=== PATIENT | male | born 1985 | race Two or more races ===

== ENCOUNTER 2021-07-06 11:43 | Emergency (ER) | payer OTHER ==
[2021-07-06 12:20] VITALS: TEMP 98.1; BMI 23.8
[2021-07-06 14:59] LABS: BASO % 0.7 % (0-2.0); EOS % 0.6 % (0-4.5); HEMATOCRIT 48.2 % (35.4-49); HEMOGLOBIN 16.5 GM/dL (11.7-16.9); LYMPH % 30.4 % (8-40); MCH 33.9 pg (25.7-33.7); MCHC 34.2 g/dl (32.0-35.9); MEAN CELL VOLUME 99.1 fl (80-96); MEAN PLT VOLUME 8.8 fl (7.5-11.1); MONO % 8.9 % (3.8-10.2); NEUT % 59.4 % (42.8-82.8); PLATELET COUNT 243 10^3/uL (134-434); RBC 4.86 M/mm3 (4.00-5.60); WHITE BLOOD COUNT 8.2 K/mm3 (4.0-10.0)
[2021-07-06 15:18] LABS: CALCIUM 9.5 mg/dL (8.5-10.1)
[2021-07-06 15:19] LABS: BLOOD UREA NITROGEN 13.2 mg/dL (7-18)
[2021-07-06 15:21] LABS: CREATININE 0.8 mg/dL (0.55-1.3); PHOSPHOROUS 3.6 mg/dL (2.5-4.9)
[2021-07-06 15:23] LABS: BILIRUBIN,TOTAL 1.3 mg/dL (0.2-1); TOT PROT 7.6 g/dl (6.4-8.2)
[2021-07-06 17:09] VITALS: BP 138/65; PULSE 69
== END 2021-07-06 17:10 | disposition home or self-care (01) ==
LOC: JER 11:43
DX: R25.1 Tremor, unspecified (principal)
CPT/HCPCS: 36415; 70450-TC; 80053; 80164; 83735; 84100; 85025; 93005; 93010; 99285-25